=== PATIENT | female | born 1995 | race Caucasian/White ===

== ENCOUNTER 2020-05-17 09:14 | Emergency (ER) | payer OTHER, SELFPAY ==
--- NOTE | ~2020-05-17 | CT_ITS ---
EXAMINATION: CT abdomen pelvis w con EXAM DATE: 05/17/2020 11:01 INDICATION: section 6 days ago with abdominal pain at incision site radiating to vagina. TECHNIQUE: Spiral CT of the abdomen and pelvis was performed following intravenous injection of 100 m L Omnipaque 350. Axial, coronal and sagittal images were reviewed. The dose-length product (DLP) fo r this examination was 1286.38 mGy-cm. The exposure was tailored according to patient size (auto mA exposure control), and iterative reconstruction (ASIR) was used as additional dose reduction techniqu e. There is no prior study for comparison. FINDINGS: Surgical incision site identified from section. Tiny pocket of fluid and gas, post operative along its left side. Only trace free pelvic fluid. The liver, spleen, adrenal glands and p ancreas are unremarkable. Gallbladder is unremarkable. No biliary obstruction. Portal and splenic veins are patent. Kidneys enhance symmetrically. There is 2.5 mm right inferior calyceal stone. Ther e is no hydronephrosis. Enlarged uterus. The bladder is unremarkable. There is no retr operitoneal or pelvic lymphadenopathy. The appendix is normal. The stomach and small bowel are unremarkable. There is expected amount of c olonic stool. No free intraperitoneal gas. The heart is normal in size. There are no pericardial or pleural effusions. The lung bases are unremarkable. The bones are unremarkable. IMPRESSION: 1. Expected surgical changes from recent section. Reviewed, dictated and finalized at location A.
[2020-05-17 09:23] VITALS: BP 141/89; PULSE 78; RESP 25; O2SAT 99
[2020-05-17 09:25] VITALS: BP 141/89; PULSE 78; RESP 18; TEMP 37; O2SAT 100
--- NOTE | 2020-05-17 09:27 | ED.ABDPAIN ---
HPI - Abdominal Pain General Chief Complaint: Abdominal Pain Stated Complaint: post c section pain/done at [facility] Time Seen by Provider: 05/17/20 09:23 History of Present Illness HPI narrative: Patient presents emergency department from home for abdominal pain. Patient states she is approximately 6 days postop from a performed at [facility]. States she was feeling fine until this morning when she woke up with severe pain in the lower abdomen rating down into the lower pelvis. Patient states that she has hydrocodone at home but did not take it for the pain. She denies any fevers or chills chest pain shortness of breath nausea vomiting diarrhea vaginal bleeding or any other symptoms Related Data Home Medications Medication Instructions Recorded Confirmed cyclobenzaprine mg 05/17/20 hydrocodone-acetaminophen 05/17/20 ibuprofen 05/17/20 norethindrone (contraceptive) mg 05/17/20 05/17/20 Allergies Allergy/AdvReac Type Severity Reaction Status Date / Time codeine Allergy Unknown Verified 05/17/20 09:58 Review of Systems Review of Systems: Narrative: Gen.: Denies fevers or chills ENT: Denies congestion Respiratory: Denies shortness of breath or cough CV: Denies chest pain or palpitations GI: See HPI denies burning, urgency, frequency or hematuria Musculoskeletal: Denies back pain or muscle pain Neuro: Denies numbness, tingling, weakness or focal weakness Skin: Denies rash Except as documented, all other systems reviewed and negative [facility] Past Medical History Medical History (Updated 05/17/20 @ 12:31 by Aren Jeffries DO) Patient denies significant medical history Surgical History Surgical History (Updated 05/17/20 @ 09:28 by Aren Jeffries DO) Previous section Social History Social History Smoking status: Never smoker Alcohol intake: current Gender identity (if verbalized by the patient): Female Exam Narrative: Exam Narrative: APPEARANCE: No acute distress, nontoxic, resting in bed EYES: EOMI HEENT: Normocephalic, atraumatic, OMM RESPIRATORY: No respiratory distress Clear to auscultation bilaterally with no rhonchi wheezing or rales. CARDIOVASCULAR: Regular rate and rhythm without murmurs rubs or gallops. ABDOMINAL: Soft, healing surgical wound in lower abdomen with no signs of infection or active bleeding, diffusely tender to palpation with increased tenderness in the right lower quadrant left lower quadrant, no rebound or guarding MUSCULOSKELETAl: Moves all extremities. No clubbing, cyanosis or edema. NEURO: Awake and alert. Following commands, speech normal, no focal deficits SKIN:: Warm, dry. No rashes lesions or abrasions PSYCHIATRIC: Normal affect/mood, Course Course Emergency Course: Called and discussed with Dr. Jolly for [facility] at [facility]. Agrees with plan for discharge and follow-up as an outpatient Patient states that they are feeling much better at this time. States abdominal pain has resolved. Repeat abdominal exam shows the patient's abdomen to be soft and nontender. Discussed with patient results of workup and diagnosis. Discussed need for follow-up with primary care physician, reasons to return to the emergency department in proper use of medication. Patient understands and agrees to current treatment plan Vital Signs Vital signs: Vital Signs Pulse Rate 78 05/17/20 09:23 Respiratory Rate 25 H 05/17/20 09:23 Blood Pressure 141/89 H 05/17/20 09:23 Pulse Oximetry 99 05/17/20 09:23 Temperature 98.6 F 05/17/20 09:25 Pulse Rate 77 05/17/20 10:16 Respiratory Rate 22 H 05/17/20 10:16 Blood Pressure 129/78 05/17/20 10:16 Pulse Oximetry 100 05/17/20 10:16 MDM - Abdominal Pain MDM Narrative Medical decision making narrative: Patient states that they are feeling much better at this time. States abdominal pain has resolved. Repeat abdominal exam shows the pa
[2020-05-17 09:31] VITALS: BP 137/79; PULSE 74; RESP 18; O2SAT 100
[2020-05-17] MEDS: MORPHINE SULFATE 4 MG/ML INJ IV PUSH (09:49)
[2020-05-17] MEDS: SODIUM CHLORIDE 0.9% IV 1,000 ML 999 ML IV CONT (09:49)
--- NOTE | 2020-05-17 10:00 | PC.NURSE ---
Pt attempted to get up to provide urine sample but was unable to due to pain. Pt given pain medication at this time.
[2020-05-17 10:11] LABS: Basophils Percent Auto 0.5 % (0.2-1.2); Eosinophils Absolute Auto 0.3 K/mm3 (0-0.3); Eosinophils Percent Auto 3.5 % (0-4.4); Hematocrit 31.6 % (37.0-47.0); Hemoglobin 9.9 g/dL (12.0-15.0); Immature Granulocyte Absolute 0.08 K/mm3 (0.00-0.031); Immature Granulocyte Percent A 0.9 % (0-0.5); Lymphocytes Absolute Auto 1.68 K/mm3 (0.9-3.2); Lymphocytes Percent Auto 19.2 % (18.3-44.2); Mean Corpuscular HGB Conc 31.3 g/dl (32-36); Mean Corpuscular Hemoglobin 25.3 pg (26-34); Mean Corpuscular Volume 80.6 fl (80-100); Mean Platelet Volume 8.7 fl (7.4-10.4); Monocytes Absolute Auto 0.4 K/mm3 (0.1-0.6); Monocytes Percent Auto 4.7 % (2.6-8.5); Neutrophils Absolute Auto 6.2 K/mm3 (1.3-6.7); Neutrophils Percent Auto 71.2 % (45.5-73.1); Platelet Count Result 385 k/mm3 (150-375); Red Blood Count 3.92 M/mm3 (4.2-5.4); Red Cell Distribution Width 15.3 % (11.5-14.5); White Blood Count 8.8 K/mm3 (4.5-10.0)
[2020-05-17 10:16] VITALS: BP 129/78; PULSE 77; RESP 22; O2SAT 100
[2020-05-17 10:31] LABS: Alanine Aminotransferase 54 U/L (4-35); Albumin Level 3.3 g/dL (3.5-5.1); Alkaline Phosphatase 179 U/L (38-126); Anion Gap 5 mmol/L (8-16); Aspartate Amino Transferase 37 U/L (14-36); Bilirubin,Total 0.3 mg/dL (0.2-1.3); Blood Urea Nitrogen 14 mg/dL (7-17); Calcium 9.2 mg/dL (8.4-10.2); Carbon Dioxide 25 mmol/L (22-30); Chloride 107 mmol/L (98-107); Estimated CRCL calculation 157 ml/min; Estimated Glomerular Filt Rate > 60; Glucose 89 mg/dL (65-105); Potassium 4.2 mmol/L (3.4-5.0); Sodium 137 mmol/L (137-145)
--- NOTE | 2020-05-17 11:55 | PC.NURSE ---
Gave pt a breast pump from OB
[2020-05-17 11:58] LABS: Add Urine Microscopic? YES; Appearance Urine Clear (Clear); Bacteria Urine Trace /hpf; Bilirubin Urine Negative (Negative); Blood Urine 1+ (Negative); Color Urine Yellow (Yellow); Glucose Urine UA Negative (Negative); Ketones Urine Negative (Negative); Leukocyte Esterase Ur Negative LEU/UL (Negative); Mucus Urine Rare /lpf; Nitrate Urine Negative (Negative); Protein Urine Negative (Negative); RBC Urine 0-2 /hpf (0-2); Specific Grav Ur 1.016 (1.001-1.035); Transitional Epi Cells Urine Rare /hpf (None Seen); Urobilinogen Urine Negative mg/dL (<2.0); WBC Urine 0-3 /hpf
[2020-05-17 12:15] VITALS: BP 128/74; PULSE 77; RESP 18; O2SAT 100
[2020-05-17 13:21] VITALS: BP 145/88; PULSE 85; RESP 14; O2SAT 98
== END 2020-05-17 13:22 | disposition home or self-care (01) ==
PROVIDERS: Emergency Provider Emergency Medicine
DX: G89.18 Other acute postprocedural pain (principal)
CPT/HCPCS: 36415; 74177; 80053; 81001; 85025; 96361; 96374; 99284; J2270; J7030; Q9967